=== PATIENT | male | born 1940 ===

== ENCOUNTER 2020-04-20 18:00 | Inpatient (IN) | payer MEDICARE ==
[~2020-04-20] VITALS: Ht 185.4 cm; Wt 90.6 kg
--- NOTE | ~2020-04-20 | OP ---
PATIENT NAME: MELODIE BAJWA MEDICAL RECORD: [id number] :40 LOCATION:D.ICU D.2309 ADMISSION DATE:04/20/20 SURGEON: ALONDRA RANGEL MD DATE OF OPERATION: 04/22/2020 PREOPERATIVE DIAGNOSES: 1. Need for IV access. 2. Acute renal failure. 3. Hypertension. 4. Diabetes mellitus. 5. Atrial fibrillation. 6. Hyperlipidemia. POSTOPERATIVE DIAGNOSES: 1. Need for IV access. 2. Acute renal failure. 3. Hypertension. 4. Diabetes mellitus. 5. Atrial fibrillation. 6. Hyperlipidemia. PROCEDURE: Right IJ triple-lumen central venous line placement. SURGEON: Alondra Rangel MD REPORT OF PROCEDURE: The patient's right neck was prepped and draped in sterile fashion. A 5 cc of 1% lidocaine with epinephrine was infused into the surrounding tissues. A needle was used to cannulate the right internal jugular vein under ultrasound guidance. A guidewire was then advanced with ease. Over this wire, a dilator was placed followed by the triple lumen catheter. The catheter aspirated nonpulsatile dark blood and flushed easily in all 3 ports. This was sutured into place with 3-0 silk ties and dressed appropriately. COMPLICATIONS: None. CONDITION: Stable. ANESTHESIA: Local. BLOOD LOSS: Minimal. Procedure done in the ICU at the bedside. TRANSINT:[id number] Voice Confirmation ID: [id number] DOCUMENT ID: [id number] ALONDRA RANGEL MD CC: [id number] DICTATION DATE: 04/22/20 1619 SCRIBING MACHINE OPERATOR: 04/23/20 0115 ADM IN [place] [id number] [place] [address]
[2020-04-20] MEDS ORDERED: GLUCOPHAGE500 MG PO (18:21)
[2020-04-20] MEDS ORDERED: NEURONTIN 400400 MG PO (18:21)
[2020-04-20] MEDS ORDERED: ZOFRAN8 MG PO (18:22)
[2020-04-20] MEDS ORDERED: METOPROLOL TART50 MG PO (18:22)
[2020-04-20] MEDS ORDERED: K-DUR20 MEQ PO (18:23)
[2020-04-20] MEDS ORDERED: CARTIA XT120 MG PO (18:23)
[2020-04-20] MEDS ORDERED: CARAFATE1 G PO (18:23)
[2020-04-20] MEDS ORDERED: ALDACTONE25 MG PO (18:24)
[2020-04-20] MEDS ORDERED: FUROSEMIDE20 MG (18:24)
[2020-04-20] MEDS ORDERED: LEVOTHYROXINE125 MCG PO (18:25)
[2020-04-20 18:34] LABS: BASOPHILS 0.5 % (0-2); EOSINOPHILS 0.7 % (0-7); HEMOGLOBIN 12.9 g/dL (13.5-17.5); IMMATURE GRANULOCYTES 0.3 % (0-5); LYMPHOCYTES 29.2 % (15-50); MCH 31.4 pg (26.0-34.0); MCHC 33.1 g/dL (31.0-37.0); MCV 94.9 fL (80.0-100.0); MONOCYTES 10.2 % (2-11); NEUTROPHILS 59.1 % (40-80); PLATELET COUNT 204 10x3/uL (130-400); RBC 4.11 10x6/uL (4.20-6.10); RDW 13.4 % (11.5-14.5); WBC 9.5 10x3/uL (4.8-10.8)
[2020-04-20 18:38] VITALS: BP 98/60; BMI 25.9
[2020-04-20 18:45] LABS: ANION GAP 17.9 mmol/L (8-16); CALCIUM 9.5 mg/dL (8.5-10.1); CARBON DIOXIDE 20.3 mmol/L (21.0-32.0); MAGNESIUM - SERUM 2.1 mg/dL (1.8-2.4)
[2020-04-20 18:57] LABS: POTASSIUM - SERUM 8.2 mmol/L (3.5-5.1)
[2020-04-20 19:00] VITALS: BP 122/76
--- NOTE | 2020-04-20 19:25 | NUR ---
RECEIVED ORDERS FROM DR BENSON TO GIVE LASIX 60 MG IVP X1 AND PERFORM EKG.
[2020-04-20 20:00] VITALS: BP 133/102
--- NOTE | 2020-04-20 20:43 | NUR ---
OK TO DO IN AM- US CAROTID DOPPLER STUDY- PER NURSE PRICE
--- NOTE | 2020-04-20 20:47 | NUR ---
OK TO DO US KIDNEYS IN THE AM PER NURSE PRICE
[2020-04-20 20:54] LABS: CKMB 2.8 U/L (0.0-3.6); CREATINE KINASE 178 UL (21-232)
[2020-04-20 20:55] LABS: TROPONIN-I < 0.017 ng/mL (0.000-0.060)
[2020-04-20 21:00] VITALS: BP 137/102
--- NOTE | 2020-04-20 21:03 | NUR ---
GAVE 25 MG D50 FOLLOWED BY 10 UNITS OF REGULAR INSULIN PER NEW ORDER. WAITING ON SQL DBA TO MANDEEP SODIUM BICARB IV FLUIDS.
--- NOTE | 2020-04-20 21:17 | NUR ---
NOTIFIED DR MOCTEZUMA OF CONSULT AND RELAYED LABS. NO NEW ORDERS...WILL SE PT IN AM.
--- NOTE | 2020-04-20 21:28 | NUR ---
GAVE TURKEY SANDWICH TRAY W/ ORANGES FOR HS SNACK PT DID NOT HAVE DINNER. WILL CONTINUE TO MONITOR FOR NEEDS.
--- NOTE | 2020-04-20 21:30 | NUR ---
WILL DRAW ANOTHER BMP 1 HOUR AFTER SODIUM BICARB STARTED AND CALL MD IF K+ ABOVE 7.
--- NOTE | 2020-04-20 21:50 | NUR ---
COLLECTED URINE FROM CAMPBELL TUBE AND DELIVERED TO LAB FOR ORDERED STUDIES.
[2020-04-20 22:00] VITALS: BP 131/80
[2020-04-20 22:17] LABS: BILIRUBIN NEGATIVE (NEGATIVE); GLUCOSE NEGATIVE (NEGATIVE); KETONE NEGATIVE (NEGATIVE); NITRITE NEGATIVE (NEGATIVE); UROBILINOGEN NORMAL (NORMAL)
[2020-04-20 22:33] LABS: RED CELLS - URINE 0-5 /hpf (0-5)
[2020-04-20 22:34] LABS: BACTERIA FEW /hpf (NEGATIVE); EPITHELIAL CELLS NSEEN /hpf (0-5)
--- NOTE | 2020-04-20 22:47 | NUR ---
RECEIVED ORDER TO GIVE X1 DOSE 8.4 GMS VALPESSA AFTER NEXT LABS DRAWN.
--- NOTE | 2020-04-20 22:47 | NUR ---
RECEIVED ORDER TO GIVE X1 DOSE OF VELTESSA 5.4 GMS AFTER LAB DRAW.
[2020-04-20 23:00] VITALS: BP 105/86
[2020-04-20 23:21] LABS: ANION GAP 15.4 mmol/L (8-16); CALCIUM 8.6 mg/dL (8.5-10.1); CARBON DIOXIDE 23.7 mmol/L (21.0-32.0); CREATININE - SERUM 3.9 mg/dL (0.6-1.3)
[2020-04-20 23:26] LABS: POTASSIUM - SERUM 7.1 mmol/L (3.5-5.1)
--- NOTE | 2020-04-20 23:38 | NUR ---
CALLED CRITICAL POTASSIUM LEVEL TO DR BENSON. WILL CONTINUE TO FOLLOW CLOSELY AND RE-CHECK WITH AM LABS.
[2020-04-20 23:44] LABS: INR 7.05 (0.85-1.17); PROTIME 59.1 SECONDS (11.6-15.0)
--- NOTE | 2020-04-20 23:49 | NUR ---
CALLED CRITICAL PT / INR RESULTS TO DR ARAMIS ALAN. NO NEW ORDERS. WILL CONTINUE TO MONITOR CLOSELY.
[2020-04-21] VITALS (25 sets, daily range): BP systolic 84–111; BP diastolic 50–86; Ht 185.4 cm; Wt 90.6 kg
[2020-04-21 05:14] LABS: BASOPHILS 0.6 % (0-2); EOSINOPHILS 1.8 % (0-7); HEMATOCRIT 37.3 % (42.0-54.0); HEMOGLOBIN 12.5 g/dL (13.5-17.5); IMMATURE GRANULOCYTES 0.3 % (0-5); LYMPHOCYTES 33.8 % (15-50); MCH 31.1 pg (26.0-34.0); MCHC 33.5 g/dL (31.0-37.0); MEAN PLATELET VOLUME 10.1 fL (7.4-10.4); MONOCYTES 14.2 % (2-11); NEUTROPHILS 49.3 % (40-80); PLATELET COUNT 213 10x3/uL (130-400); RBC 4.02 10x6/uL (4.20-6.10); RDW 13.2 % (11.5-14.5); WBC 7.9 10x3/uL (4.8-10.8)
[2020-04-21 05:28] LABS: MCV 92.8 fL (80.0-100.0)
[2020-04-21 05:46] LABS: ALBUMIN 3.3 g/dL (3.4-5.0); ALKALINE PHOSPHATASE 78 U/L (30-120); ALT (SGPT) 24 U/L (10-68); BILIRUBIN - TOTAL 0.67 mg/dL (0.2-1.3); CALCIUM 8.8 mg/dL (8.5-10.1); CARBON DIOXIDE 24.7 mmol/L (21.0-32.0); CHLORIDE - SERUM 100 mmol/L (98-107); CKMB 2.3 U/L (0.0-3.6); CREATINE KINASE 154 UL (21-232); CREATININE - SERUM 3.6 mg/dL (0.6-1.3); MAGNESIUM - SERUM 1.8 mg/dL (1.8-2.4); PHOSPHOROUS 4.6 mg/dL (2.5-4.9); PROTEIN - SERUM 7.4 g/dL (6.4-8.2); SODIUM 131 mmol/L (136-145); TROPONIN-I < 0.017 ng/mL (0.000-0.060); UREA NITROGEN 92 mg/dL (7-18); eGFR NON AFRICAN AMERICAN 17 mL/min (90-120)
[2020-04-21 05:56] LABS: CALC OSMOLALITY 292 mosm/kg (275-300); GLUCOSE 137 mg/dL (74-106); INR 7.56 (0.85-1.17); POTASSIUM - SERUM 6.1 mmol/L (3.5-5.1); PROTIME 62.3 SECONDS (11.6-15.0)
--- NOTE | 2020-04-21 06:05 | NUR ---
MAG LEVEL 1.8 THIS AM REQUIRING COVERAGE PER ELECTROLYTE PROTOCOL: MAG OX 400MG PO Q4HR X2 DOSES. FIRST DOSE GIVEN NOW.
--- NOTE | 2020-04-21 06:42 | NUR ---
CRITICAL PT / INR NOT CALLED THIS AM...DR BENSON AWARE OF CRITICAL VALUES.
--- NOTE | 2020-04-21 06:49 | NUR ---
SPOKE TO DR SOTO AND REPORTED AM LABS. SHE WILL BE HER TO SEE PT THIS AM.
--- NOTE | 2020-04-21 07:46 | NUR ---
PT IV IN LEFT AC CAME OUT DURING SHIFT CHANGE. REPLACED BY PM NURSE. PT IS AWAKE ANMD ALERT THIS MORNING. ORIENTED X4. PT HAS NEW IV IN SAME AREA. LUNGS CTA, ACTIVE BOWEL SOUNDS. NO NEEDS VOICED CONTINUE WITH PLAN OF CARE
--- NOTE | 2020-04-21 09:15 | NUR ---
PT BP STILL LOW THIS MORNING, WILL HOLD BP MEDICATION THIS MORNING. PT HAVING ECHO DONE, WILL CONTINUE WITH PLAN OF CARE
--- NOTE | 2020-04-21 10:05 | NUR ---
PT BP IS STILL LOW. RUNNING BETWEEN 89/60 TO 98/66 WILL CONTINUE TO MONITOR. HELD PT BP MEDICATIONS THIS MORNING BUT ADMINISTERED DIURETIC. SPOKE TO PT SPOUSE, BROTHER AND SISTER AND ADVISED WILL KEEP UPDATED. NO OTHER NEEDS AT THIS TIME. CONTINUE WITH PLAN OF CARE
--- NOTE | 2020-04-21 11:09 | NUR ---
PT LYING IN BED RESTING COMFORTABLY. EVEN RISE AND FALL OF CHEST, SHANNAN CURRENTLY HAS 700 IN BAG. BP IS 105/58. CONTINUE WITH PLAN OF CARE
[2020-04-21 11:57] LABS: CKMB 1.9 U/L (0.0-3.6); CREATINE KINASE 140 UL (21-232); TROPONIN-I < 0.017 ng/mL (0.000-0.060)
--- NOTE | 2020-04-21 14:46 | NUR ---
PT LYING IN BED RESTING, TV ON. CAMPBELL BAG FULL, EMPTIED 1300 OUT @ 1445. NO NEEDS VOICED AT THIS TIME. CONTINUE WITH PLAN OF CARE
[2020-04-21 16:38] LABS: ANION GAP 12.5 mmol/L (8-16); CARBON DIOXIDE 29.2 mmol/L (21.0-32.0); CREATININE - SERUM 3.6 mg/dL (0.6-1.3); POTASSIUM - SERUM 5.7 mmol/L (3.5-5.1)
--- NOTE | 2020-04-21 19:09 | NUR ---
REPORT RECIEVED, SHIFT ASSESSMENT COMPLETE, PT IS ALERT AND ORIETNED, ON RA WITH 97% O2 SAT. ALL PPP, VSS, CALL LIGHT IN REACH
[2020-04-22] VITALS (24 sets, daily range): BP systolic 86–124; BP diastolic 43–89
[2020-04-22 04:04] LABS: BASOPHILS 0.5 % (0-2); EOSINOPHILS 1.7 % (0-7); HEMATOCRIT 32.5 % (42.0-54.0); HEMOGLOBIN 11.1 g/dL (13.5-17.5); IMMATURE GRANULOCYTES 0.2 % (0-5); LYMPHOCYTES 33.5 % (15-50); MCH 31.1 pg (26.0-34.0); MCHC 34.2 g/dL (31.0-37.0); MEAN PLATELET VOLUME 9.7 fL (7.4-10.4); MONOCYTES 12.6 % (2-11); NEUTROPHILS 51.5 % (40-80); PLATELET COUNT 185 10x3/uL (130-400); RBC 3.57 10x6/uL (4.20-6.10); RDW 12.8 % (11.5-14.5); WBC 8.3 10x3/uL (4.8-10.8)
[2020-04-22 04:22] LABS: ALBUMIN 2.9 g/dL (3.4-5.0); BILIRUBIN - TOTAL 0.79 mg/dL (0.2-1.3); CALCIUM 7.8 mg/dL (8.5-10.1); CARBON DIOXIDE 32.9 mmol/L (21.0-32.0); CREATININE - SERUM 3.5 mg/dL (0.6-1.3); MAGNESIUM - SERUM 1.4 mg/dL (1.8-2.4); POTASSIUM - SERUM 4.9 mmol/L (3.5-5.1); PROTEIN - SERUM 6.6 g/dL (6.4-8.2)
--- NOTE | 2020-04-22 07:10 | NUR ---
REPORT RECEIVED FROM DUPLICATE MAKER AND PATIENT CARE ASSUMED. PATIENT LAYING IN BED ON BACK WITH EYES CLOSED AND BREATHING EVENLY. CAMPBELL CATHETER INTACT AND DRAINING CLEAR YELLOW URINE. IV TO RT FA INFUSING NS AT 125ML/HR. BP 92/50 HR 104 RR 14 OS SAT 94% RA. WILL CONTINUE WITH PLAN 0F CARE. SR UP X 2 BED IN LOW POSITION AND CALL LIGHT IN REACH.
--- NOTE | 2020-04-22 08:40 | NUR ---
DR KOHLI ON UNIT. NEW ORDERS RECEIVED.
--- NOTE | 2020-04-22 09:45 | NUR ---
SPOKE WITH PATIENTS . UPDATED STATUS AND ANSWERED QUESTIONS TO SATISFACTION.
--- NOTE | 2020-04-22 10:10 | NUR ---
DR CARVALHO ON UNIT. NEW ORDERS RECEIVED. CONSULTED DR RANGEL FOR CVL PLACEMENT THEN CVP PLACEMENT.
--- NOTE | 2020-04-22 12:15 | NUR ---
CANDIDA JONES APRN FOR CARDIOLOGY ON UNIT. NO NEW ORDERS RECEIVED.
--- NOTE | 2020-04-22 14:15 | NUR ---
PATIENT IS STABLE. PATIENT DENIES ANY NEEDS OR PAIN. COMPLETE BED BATH GIVEN WITH COMPLETE LINEN CHANGE. WILL CONTINUE TO MONITOR. SR UPX 2 BED IN LOW POSITION AND CALL LIGHT IN REACH.
--- NOTE | 2020-04-22 16:10 | NUR ---
DR RANGEL IN ROOM. RIJ PLACED WITHOUT DIFFICULTY. PATIENT TOLERATED WELL. CVP LINE PLACED. PATIENT IS STABLE. REPOSTIONED PATIENT FOR COMFORT. WILL CONTINUE TO MONITOR.
--- NOTE | 2020-04-22 17:45 | NUR ---
PATIENT IS STABLE . PATIENT DENIES ANY NEEDS OR PAIN. REPOSITONED FOR COMFORT. WILL CONTINUE TO MONITOR. SR UP X 2 BED IN LOW POSITION AND CALL LIGHT INN REACH.
--- NOTE | 2020-04-22 19:00 | NUR ---
REPORT RECIEVED, SHIFT ASSESSMENT COMPLETE, PT IS ALERT AND ORIENTED, ON RA WITH 97% O2 SAT. ALL PPP, VSS, CALL LIGHT IN REACH
[2020-04-23] VITALS (14 sets, daily range): BP systolic 100–133; BP diastolic 26–90
[2020-04-23 04:31] LABS: BASOPHILS 0.7 % (0-2); EOSINOPHILS 2.5 % (0-7); HEMATOCRIT 31.7 % (42.0-54.0); HEMOGLOBIN 10.5 g/dL (13.5-17.5); IMMATURE GRANULOCYTES 0.4 % (0-5); LYMPHOCYTES 24.5 % (15-50); MCH 30.5 pg (26.0-34.0); MCHC 33.1 g/dL (31.0-37.0); MCV 92.2 fL (80.0-100.0); MEAN PLATELET VOLUME 10.1 fL (7.4-10.4); MONOCYTES 13.9 % (2-11); PLATELET COUNT 185 10x3/uL (130-400); RBC 3.44 10x6/uL (4.20-6.10); RDW 12.7 % (11.5-14.5); WBC 8.1 10x3/uL (4.8-10.8)
[2020-04-23 04:50] LABS: ALBUMIN 2.9 g/dL (3.4-5.0); ANION GAP 10.8 mmol/L (8-16); BILIRUBIN - TOTAL 1.23 mg/dL (0.2-1.3); CALCIUM 7.7 mg/dL (8.5-10.1); CARBON DIOXIDE 31.7 mmol/L (21.0-32.0); MAGNESIUM - SERUM 1.5 mg/dL (1.8-2.4); POTASSIUM - SERUM 4.5 mmol/L (3.5-5.1); PROTEIN - SERUM 6.4 g/dL (6.4-8.2)
[2020-04-23 05:02] LABS: CREATININE - SERUM 2.4 mg/dL (0.6-1.3)
[2020-04-23 05:14] LABS: INR 2.16 (0.85-1.17); PROTIME 23.7 SECONDS (11.6-15.0)
--- NOTE | 2020-04-23 07:00 | NUR ---
REPORT RECEIVED. ASSESSMENT COMPLETE PER FLOW SHEET. VSS. PT RESTING COMFORTABLY WILL CONTINUE TO MONITOR.
--- NOTE | 2020-04-23 08:10 | NUR ---
DR HUANG AT BEDSIDE GIVEN UPDATE. NO NEW ORDERS RECEIVED. STATED COULD TRANSFER TO FLOOR AT THIS TIME.
--- NOTE | 2020-04-23 11:09 | NUR ---
DR CARVALHO AT BEDSIDE GIVEN UPDATE. TRANSFER ORDERS RECEIVED
--- NOTE | 2020-04-23 12:36 | NUR ---
Nutrition follow-up: Visited with pt during breakfast. Reviewed menus selections. Pt with good po intake of consistent CHO low K diet. Labs reviewed; glucose still running high Wt: 199# Tx to floor today RDN following.
--- NOTE | 2020-04-23 14:37 | NUR ---
PATIENT TRANFERES TO MED 2 FROM ICU VIA BED IN STABLE CONDITION. FLUIDS OF N/S AT 50 TO RIGHT CVL, UP TO BSC. ALERT AND ORIENT AND DENIES AND NEEDS AT THIS TIME.
--- NOTE | 2020-04-23 19:05 | NUR ---
REPORT RECEIVED, WILL CONT POC. PT A&O, UP IN BED WATCHING TV. NO S/S OF DISTRESS OBSERVED. RR EVEN AND UNLABORED ON ROOM 1L VIA NC. ASSISTED PT TO TOILET. PT DENIES NEEDS AT THIS TIME. CALL LIGHT IN REACH, BED LOCKED, LOWERED, AND BED ALARM SET. WILL CONT TO MONITOR.
[2020-04-24 07:31] LABS: BASOPHILS 0.5 % (0-2); HEMATOCRIT 30.3 % (42.0-54.0); HEMOGLOBIN 10.1 g/dL (13.5-17.5); IMMATURE GRANULOCYTES 0.5 % (0-5); LYMPHOCYTES 30.7 % (15-50); MCHC 33.3 g/dL (31.0-37.0); MCV 92.9 fL (80.0-100.0); MONOCYTES 16.8 % (2-11); NEUTROPHILS 48.5 % (40-80); PLATELET COUNT 167 10x3/uL (130-400); RBC 3.26 10x6/uL (4.20-6.10); RDW 12.7 % (11.5-14.5)
[2020-04-24 07:33] LABS: ALBUMIN 2.7 g/dL (3.4-5.0); BILIRUBIN - TOTAL 1.11 mg/dL (0.2-1.3); CALCIUM 7.9 mg/dL (8.5-10.1); CARBON DIOXIDE 30.4 mmol/L (21.0-32.0); CREATININE - SERUM 2.2 mg/dL (0.6-1.3); MAGNESIUM - SERUM 1.7 mg/dL (1.8-2.4); POTASSIUM - SERUM 4.4 mmol/L (3.5-5.1); PROTEIN - SERUM 6.3 g/dL (6.4-8.2)
[2020-04-24 08:00] VITALS: BP 145/89
--- NOTE | 2020-04-24 08:27 | NUR ---
PT TOOK AM MEDS WITHOUT DIFFICUTLY, ASSSITED PT TO BATHROOM, AMBULATED WITH STANDBY ASSIST, IV INFUSING WITHOUT DIFFICULTY, SITE CLEAR, PT DENIES PAIN OR NEEDS, BED LOW AND LOCKED, SR UP X2, CALL LIGHT IN REACH, WILL CONTINUE TO MONITOR
--- NOTE | 2020-04-24 13:11 | NUR ---
CALLED TO TELL HER THAT HE WAS DISCHARGED, SHE VOICES SHE WILL TRY AND GET HIM A RIDE HOME
--- NOTE | 2020-04-24 13:39 | NUR ---
TALKED WITH PT ABOUT BEING DISCHARGED, PT VERBALIZES HE DOESNT HAVE A RIDE, CASE MANAGEMENT WORKING ON TRANSPORTATION FOR PT
--- NOTE | 2020-04-24 14:28 | MORECARE ---
CASE MANAGEMENT DISCHARGE SUMMARY PATIENT: MELODIE BAJWA UNIT: [id number] ADM DATE: 04/20/20 AGE: 79 : 40 SEX: M ROOM/BED: D.2112 AUTHOR: AVIS SCHREIBER PHYSICIAN: REFERRING PHYSICIAN: MAN BASHIR MD DATE OF SERVICE: 04/24/20 Discharge Plan Patient Name: MELODIE BAJWA Facility: [facility]:[place] : 1940 Planned Disposition: Home Anticipated Discharge Date: 04/24/20 Discharge Date: Expected LOS: 4 Initial Reviewer: [email or web address] Initial Review Date: 04/20/2020 Generated: 04/24/20 3:28 pm Comments DCP- Discharge Planning Updated by [email or web address]: Juana Mathew on 04/24/20 1:[address] CM met with patient to discuss initial discharge planning. Patient is in agreement to proceed with the assessment. Patient reports that he lives at home independently with his , Jaclyn Bajwa [phone]. Patient is alert/oriented. PCP: Baldo [place]. Pharmacy: [facility]. Patient states he has been able to obtain all of his prescribed medications. HHS: Declines at present. States he will call the MD office if he thinks he needs it. DME: Walker, glucometer. States he does not check his BS very often, because he feels ok. Patient gives permission to speak with family members/care givers. Emergency contact: Jaclyn Bajwa. Other transportation: Saul Benson (friend) [phone]. 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 CM discussed the availability of HH, Rehab, SNF, OP Therapy, DME services. Patient denies the need for additional services at this time and feels safe returning to previous environment. Patient denies hospitalization within the past 30 days. Patient denies the use of community resources CONSTRUCTION STONEMASON. Transportation at time of discharge: a friend from [place]. Coverage Notice Reviewer: [email or web address] Rhea Mathew Notice Issued Date-Time: 04/24/2020 14:09 Notice Type: IM Discharge Notice Notice Delivered To: Patient Relationship to Patient: Self Boiler Testing Technician Name: Melodie Bajwa Delivery Method: HAND - Hand Delivered Mariely Days: Prior Verbal Notification: Recipient Understood Notice: Yes Recipient Signature: Yes Med Rec Note Co-signed by Attending: Coverage Notice Comment: DC IMM signed/given to patient. Original to chart. Patient Name: MELODIE BAJWA Page [phone] at 1428 All edits/amendments must be made on the electronic document DICTATION DATE: 04/24/201427 RIB CLOTH KNITTER: CRISTOBAL 04/24/201427 RPT#: [id number] DC DATE: STATUS: ADM IN [facility] [address] [place] [address] END OF REPORT
--- NOTE | 2020-04-24 16:15 | MORECARE ---
CASE MANAGEMENT DISCHARGE SUMMARY PATIENT: MELODIE BAJWA UNIT: [id number] ADM DATE: 04/20/20 AGE: 79 : 40 SEX: M ROOM/BED: D.2112 AUTHOR: AVIS SCHREIBER PHYSICIAN: REFERRING PHYSICIAN: MAN BASHIR MD DATE OF SERVICE: 04/24/20 Discharge Plan Patient Name: MELODIE BAJWA Facility: [facility]:[place] : 1940 Planned Disposition: Home Health Service Anticipated Discharge Date: 04/24/20 Discharge Date: Expected LOS: 4 Initial Reviewer: [email or web address] Initial Review Date: 04/20/2020 Generated: 04/24/20 5:14 pm Comments DCP- Discharge Planning Updated by [id number]: Juana Mathew on 04/24/20 1:[address] CM met with patient to discuss initial discharge planning. Patient is in agreement to proceed with the assessment. Patient reports that he lives at home independently with his , Jaclyn Bajwa [phone]. Patient is alert/oriented. PCP: Baldo [place]. Pharmacy: [facility]. Patient states he has been able to obtain all of his prescribed medications. HHS: Declines at present. States he will call the MD office if he thinks he needs it. DME: Walker, glucometer. States he does not check his BS very often, because he feels ok. Patient gives permission to speak with family members/care givers. Emergency contact: Jaclyn Bajwa. Other transportation: Saul Benson (friend) [phone]. 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 CM discussed the availability of HH, Rehab, SNF, OP Therapy, DME services. Patient denies the need for additional services at this time and feels safe returning to previous environment. Patient denies hospitalization within the past 30 days. Patient denies the use of community resources EXHIBIT BUILDER. Transportation at time of discharge: a friend from [place]. External Providers External Provider: OTHER-OTHER Next Contact Date: Service Request Date: Service Type: Resolution: Reviewer: Comments: Coverage Notice Reviewer: [email or web address] - Juana Mathew Notice Issued Date-Time: 04/24/2020 14:09 Notice Type: IM Discharge Notice Notice Delivered To: Patient Relationship to Patient: Self Supervisor Covering And Lining Name: Melodie Bajwa Delivery Method: HAND - Hand Delivered Mariely Days: Prior Verbal Notification: Recipient Understood Notice: Yes Recipient Signature: Yes Med Rec Note Co-signed by Attending: Coverage Notice Comment: DC IMM signed/given to patient. Original to chart. Last DP export: 04/24/20 1:28 p Patient Name: MELODIE BAJWA Page [phone] at 1615 All edits/amendments must be made on the electronic document DICTATION DATE: 04/24/201613 FURNACE COMBINATION ANALYST: CRISTOBAL 04/24/201613 RPT#: [id number] DC DATE: STATUS: ADM IN [facility] [address] [place] [address] END OF REPORT
--- NOTE | 2020-04-24 16:23 | MORECARE ---
CASE MANAGEMENT DISCHARGE SUMMARY PATIENT: MELODIE BAJWA UNIT: [id number] ADM DATE: 04/20/20 AGE: 79 : 40 SEX: M ROOM/BED: D.2112 AUTHOR: AVIS SCHREIBER PHYSICIAN: REFERRING PHYSICIAN: MAN BASHIR MD DATE OF SERVICE: 04/24/20 Discharge Plan Patient Name: MELODIE BAJWA Facility: [facility]:[place] : 1940 Planned Disposition: Home Health Service Anticipated Discharge Date: 04/24/20 Discharge Date: Expected LOS: 4 Initial Reviewer: [email or web address] Initial Review Date: 04/20/2020 Generated: 04/24/20 5:22 pm Comments DCP- Discharge Planning Updated by [email or web address]: Juana Mathew on 04/24/20 3:[address] 1620: Contacted Jose A SAUNDERS for [facility] order. Contacted Radha with [facility] and she agrees to accept the patient. Required information faxed to [phone], . CM met with patient to discuss initial discharge planning. Patient is in agreement to proceed with the assessment. Patient reports that he lives at home independently with his , Jaclyn Bajwa [phone]. Patient is alert/oriented. PCP: Nolberto [place]. Pharmacy: [facility]. Patient states he has been able to obtain all of his prescribed medications. HHS: Declines at present. States he will call the MD office if he thinks he needs it. DME: [facility] glucometer. States he does not check his BS very often, because he feels ok. Patient gives permission to speak with family members/care givers. Emergency contact: Jaclyn Bajwa. Other transportation: Saul Benson (friend) [phone]. 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 CM discussed the availability of HH, Rehab, SNF, OP Therapy, DME services. Patient denies the need for additional services at this time and feels safe returning to previous environment. Patient denies hospitalization within the past 30 days. Patient denies the use of community resources MANAGER ACQUISITION. Transportation at time of discharge: a friend from [place]. Coverage Notice Reviewer: [id number] Rhea Mathew Notice Issued Date-Time: 04/24/2020 14:09 Notice Type: IM Discharge Notice Notice Delivered To: Patient Relationship to Patient: Self Electronic Page Makeup System Operator Name: Melodie Bajwa Delivery Method: HAND - Hand Delivered Mariely Days: Prior Verbal Notification: Recipient Understood Notice: Yes Recipient Signature: Yes Med Rec Note Co-signed by Attending: Coverage Notice Comment: DC IMM signed/given to patient. Original to chart. Last DP export: 04/24/20 3:15 p Patient Name: MELODIE BAJWA Page [phone] at 1623 All edits/amendments must be made on the electronic document DICTATION DATE: 04/24/201621 TANDEM MILL STICKER: CRISTOBAL 04/24/201621 RPT#: [id number] DC DATE: STATUS: ADM IN [facility] [address] [place] [address] END OF REPORT
--- NOTE | 2020-04-24 17:15 | NUR ---
WENT OVER DISCHARGE INSTRUCTIONS WITH PT AND , VERBALIZED UNDERSTANDING,REMOVED RIGHT IJ, TIP INTACT, PT TOLERATED WELL, RETURNED ALL PERSONAL BELONGINGS, NO OTHER NEEDS VOICED.
--- NOTE | 2020-04-25 09:44 | MORECARE ---
CASE MANAGEMENT DISCHARGE SUMMARY PATIENT: MELODIE BAJWA UNIT: [id number] ADM DATE: 04/20/20 AGE: 80 : 40 SEX: M ROOM/BED: D.2112 AUTHOR: AVIS SCHREIBER PHYSICIAN: REFERRING PHYSICIAN: MAN BASHIR MD DATE OF SERVICE: 04/25/20 Discharge Plan Patient Name: MELODIE BAJWA Facility: [facility]:[place] : 1940 Planned Disposition: Home Health Service Anticipated Discharge Date: 04/24/20 Discharge Date: 04/24/2020 Expected LOS: 4 Initial Reviewer: [email or web address] Initial Review Date: 04/20/2020 Generated: 04/25/20 10:44 am Comments DCP- Discharge Planning Updated by [id number]: Juana Mathew on 04/24/20 3:[address] 1620: Contacted Jose A SAUNDERS for [facility] order. Contacted Radha with [facility] and she agrees to accept the patient. Required information faxed to [phone], . CM met with patient to discuss initial discharge planning. Patient is in agreement to proceed with the assessment. Patient reports that he lives at home independently with his , Jaclyn Bajwa [phone]. Patient is alert/oriented. PCP: Nolberto Eubanks. Pharmacy: [facility]. Patient states he has been able to obtain all of his prescribed medications. HHS: Declines at present. States he will call the MD office if he thinks he needs it. DME: [facility], glucometer. States he does not check his BS very often, because he feels ok. Patient gives permission to speak with family members/care givers. Emergency contact: Jaclyn Bajwa. Other transportation: Saul Benson (friend) [phone]. 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 CM discussed the availability of HH, Rehab, SNF, OP Therapy, DME services. Patient denies the need for additional services at this time and feels safe returning to previous environment. Patient denies hospitalization within the past 30 days. Patient denies the use of community resources HEARSE DRIVER. Transportation at time of discharge: a friend from [place]. External Providers External Provider: OTHER-OTHER Next Contact Date: Service Request Date: Service Type: Resolution: Reviewer: Comments: Coverage Notice Reviewer: [email or web address] Rhea Mathew Notice Issued Date-Time: 04/24/2020 14:09 Notice Type: IM Discharge Notice Notice Delivered To: Patient Relationship to Patient: Self Advisory Application Developer Name: Melodie Bajwa Delivery Method: HAND - Hand Delivered Mariely Days: Prior Verbal Notification: Recipient Understood Notice: Yes Recipient Signature: Yes Med Rec Note Co-signed by Attending: Coverage Notice Comment: DC IMM signed/given to patient. Original to chart. Reviewer: [email or web address] Rhea Mathew Notice Issued Date-Time: 04/24/2020 16:25 Notice Type: Patient Choice Letter Notice Delivered To: Patient Relationship to Patient: Self Advisory Application Developer Name: Melodie Bajwa Delivery Method: HAND - Hand Delivered Mariely Days: Prior Verbal Notification: Recipient Understood Notice: Yes Recipient Signature: Yes Med Rec Note Co-signed by Attending: Coverage Notice Comment: Patient choice for [facility]. Last DP export: 04/24/20 3:23 p Patient Name: MELODIE BAJWA Page [phone] at 0944 All edits/amendments must be made on the electronic document DICTATION DATE: 04/25/20943 ROOFING APPRENTICE: CRISTOBAL 04/25/20943 RPT#: [id number] DC DATE:04/24/20 STATUS: DIS IN [place] [address] [place] [address] END OF REPORT
--- NOTE | 2020-04-25 10:08 | MORECARE ---
CASE MANAGEMENT DISCHARGE SUMMARY PATIENT: MELODIE BAJWA UNIT: [id number] ADM DATE: 04/20/20 AGE: 80 : 40 SEX: M ROOM/BED: D.2112 AUTHOR: AVIS SCHREIBER PHYSICIAN: REFERRING PHYSICIAN: MAN BASHIR MD DATE OF SERVICE: 04/25/20 Discharge Plan Patient Name: MELODIE BAJWA Facility: [facility]:[place] : 1940 Planned Disposition: Home Health Service Anticipated Discharge Date: 04/24/20 Discharge Date: 04/24/2020 Expected LOS: 4 Initial Reviewer: [email or web address] Initial Review Date: 04/20/2020 Generated: 04/25/20 11:08 am Comments DCP- Discharge Planning Updated by [email or web address]: Juana Mathew on 04/25/20 9:[address] CM re-faxed required information three different times to [facility], spoke with Gloria this morning, after verifying the fax number. DCP- Discharge Planning Updated by [id number]: Juana Mathew on 04/24/20 3:[address] 1620: Contacted Jose A SAUNDERS for [facility] order. Contacted Radha with [facility] and she agrees to accept the patient. Required information faxed to [phone], . CM met with patient to discuss initial discharge planning. Patient is in agreement to proceed with the assessment. Patient reports that he lives at home independently with his , Jaclyn Bajwa [phone]. Patient is alert/oriented. PCP: Nolberto Eubanks. Pharmacy: [facility] [place]. Patient states he has been able to obtain all of his prescribed medications. HHS: Declines at present. States he will call the MD office if he thinks he needs it. DME: [facility], glucometer. States he does not check his BS very often, because he feels ok. Patient gives permission to speak with family members/care givers. Emergency contact: Jaclyn Bajwa. Other transportation: Saul Benson (friend) [phone]. 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 CM discussed the availability of HH, Rehab, SNF, OP Therapy, DME services. Patient denies the need for additional services at this time and feels safe returning to previous environment. Patient denies hospitalization within the past 30 days. 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 Transportation at time of discharge: a friend from [place]. Coverage Notice Reviewer: [id number] Rhea Mathew Notice Issued Date-Time: 04/24/2020 14:09 Notice Type: IM Discharge Notice Notice Delivered To: Patient Relationship to Patient: Self Vice President Of Product Marketing Name: Melodie Bajwa Delivery Method: HAND - Hand Delivered Mariely Days: Prior Verbal Notification: Recipient Understood Notice: Yes Recipient Signature: Yes Med Rec Note Co-signed by Attending: Coverage Notice Comment: DC IMM signed/given to patient. Original to chart. Reviewer: [id number] Rhea Mathew Notice Issued Date-Time: 04/24/2020 16:25 Notice Type: Patient Choice Letter Notice Delivered To: Patient Relationship to Patient: Self Vice President Of Product Marketing Name: Melodie Bajwa Delivery Method: HAND - Hand Delivered Mariely Days: Prior Verbal Notification: Recipient Understood Notice: Yes Recipient Signature: Yes Med Rec Note Co-signed by Attending: Coverage Notice Comment: Patient choice for [facility]. Last DP export: 04/25/20 8:44 a Patient Name: MELODIE BAJWA Page [phone] at 1008 All edits/amendments must be made on the electronic document DICTATION DATE: 04/25/20 1008 FEATHER MAKER: CRISTOBAL 04/25/20 1008 RPT#: [id number] DC DATE:04/24/20 STATUS: DIS IN [place] [id number] [place] [address] END OF REPORT
--- NOTE | 2020-04-25 17:45 | MORECARE ---
CASE MANAGEMENT DISCHARGE SUMMARY PATIENT: MELODIE BAJWA UNIT: [id number] ADM DATE: 04/20/20 AGE: 80 : 40 SEX: M ROOM/BED: D.2112 AUTHOR: AVIS SCHREIBER PHYSICIAN: REFERRING PHYSICIAN: MAN BASHIR MD DATE OF SERVICE: 04/25/20 Discharge Plan Patient Name: MELODIE BAJWA Facility: [facility]:[place] : 1940 Planned Disposition: Home Health Service Anticipated Discharge Date: 04/24/20 Discharge Date: 04/24/2020 Expected LOS: 4 Initial Reviewer: [email or web address] Initial Review Date: 04/20/2020 Generated: 04/25/20 6:44 pm Comments DCP- Discharge Planning Updated by [email or web address]: Juana Mathew on 04/25/20 9:[address] CM re-faxed required information three different times to [facility], spoke with Gloria this morning, after verifying the fax number. DCP- Discharge Planning Updated by [email or web address]: Juana Mathew on 04/24/20 3:[address] 1620: Contacted Jose A SAUNDERS for [facility] order. Contacted Radha with [facility] and she agrees to accept the patient. Required information faxed to [phone], . CM met with patient to discuss initial discharge planning. Patient is in agreement to proceed with the assessment. Patient reports that he lives at home independently with his , Jaclyn Bajwa [phone]. Patient is alert/oriented. PCP: Nolberto Eubanks. Pharmacy: [facility]. Patient states he has been able to obtain all of his prescribed medications. HHS: Declines at present. States he will call the MD office if he thinks he needs it. DME: [facility], glucometer. States he does not check his BS very often, because he feels ok. Patient gives permission to speak with family members/care givers. Emergency contact: Jaclyn Bajwa. Other transportation: Saul Benson (friend) [phone]. 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 CM discussed the availability of HH, Rehab, SNF, OP Therapy, DME services. Patient denies the need for additional services at this time and feels safe returning to previous environment. Patient denies hospitalization within the past 30 days. 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 Transportation at time of discharge: a friend from [facility]. Coverage Notice Reviewer: [email or web address] Rhea Mathew Notice Issued Date-Time: 04/24/2020 14:09 Notice Type: IM Discharge Notice Notice Delivered To: Patient Relationship to Patient: Self Lmsw Name: Melodie Bajwa Delivery Method: HAND - Hand Delivered Mariely Days: Prior Verbal Notification: Recipient Understood Notice: Yes Recipient Signature: Yes Med Rec Note Co-signed by Attending: Coverage Notice Comment: DC IMM signed/given to patient. Original to chart. Reviewer: [email or web address] Rhea Mathew Notice Issued Date-Time: 04/24/2020 16:25 Notice Type: Patient Choice Letter Notice Delivered To: Patient Relationship to Patient: Self Lmsw Name: Melodie Bajwa Delivery Method: HAND - Hand Delivered Mariely Days: Prior Verbal Notification: Recipient Understood Notice: Yes Recipient Signature: Yes Med Rec Note Co-signed by Attending: Coverage Notice Comment: Patient choice for [facility]. Last DP export: 04/25/20 9:08 a Patient Name: MELODIE BAJWA Page [id number] at 1744 All edits/amendments must be made on the electronic document DICTATION DATE: 04/25/201743 HR SHARED SERVICES CONSULTANT: CRISTOBAL 04/25/201743 RPT#: [id number] DC DATE:04/24/20 STATUS: DIS IN [id number] [place] [address] END OF REPORT
== END 2020-04-24 17:40 | disposition home health service (06) | DRG 640 ==
LOC: D.ICU 18:00 → D.M2 04-23 13:54
PROVIDERS: Family Medicine; Internal Medicine; ADMIT Family Medicine; ATTEND Family Medicine
PROC: 05HM33Z Insertion of Infusion Device into Right Internal Jugular Vein, Percutaneous Approach (ICD-10-PCS; principal; 2020-04-22)
DX: E87.5 Hyperkalemia (principal); N17.0 Acute kidney failure with tubular necrosis; E87.2 Acidosis; R55 Syncope and collapse; E11.65 Type 2 diabetes mellitus with hyperglycemia; I10 Essential (primary) hypertension; K21.9 Gastro-esophageal reflux disease without esophagitis; E03.9 Hypothyroidism, unspecified; I11.0 Hypertensive heart disease with heart failure; I50.9 Heart failure, unspecified; I48.91 Unspecified atrial fibrillation; E78.5 Hyperlipidemia, unspecified; G62.9 Polyneuropathy, unspecified